=== PATIENT | female | born 1990 | race Two or more races ===

== ENCOUNTER 2019-04-06 17:16 | Emergency (ER) | payer MEDICAID ==
[~2019-04-06] VITALS: Ht 154.9 cm; Wt 59.0 kg
[~2019-04-06 17:16] MED LIST: BIRTH CONTROL
[2019-04-06] MEDS ORDERED: IBUPROFEN 800 MG TAB PO ONE (19:00)
[2019-04-06 20:54] VITALS: BP 114/74
== END 2019-04-06 21:14 | disposition home or self-care (01) ==
LOC: ER 17:16
DX: S66.911A Strain of unspecified muscle, fascia and tendon at wrist and hand level, right hand, initial encounter (principal); M65.4 Radial styloid tenosynovitis [de Quervain]; X58.XXXA Exposure to other specified factors, initial encounter; Y93.89 Activity, other specified; Y92.89 Other specified places as the place of occurrence of the external cause; Y99.8 Other external cause status
CPT/HCPCS: 29125; 73110; 73130